=== PATIENT | male | born 1990 | race Caucasian/White ===

== ENCOUNTER 2019-05-07 05:49 | Inpatient (IN) | payer MEDICAID, OTHER ==
[~2019-05-07] VITALS: Ht 172.7 cm; Wt 104.0 kg
[2019-05-07] MEDS ORDERED: HYDR-4001 MT (06:06)
[2019-05-07] MEDS ORDERED: OMEP20CA5 PO (06:06)
[2019-05-07] MEDS ORDERED: MORPHINE SULFATE 4 MG/ML CPJ (NOT FOR IM USE) IV STA (06:41)
[2019-05-07] MEDS ORDERED: ONDANSETRON HCL 4MG/2ML INJ IV STA (06:41)
[2019-05-07] MEDS ORDERED: SODIUM CHLORIDE 0.9% 1,000 ML IV ONE ×2 (06:41→08:52)
[2019-05-07] MEDS ORDERED: KETOROLAC 30MG/ML VIAL IV ONE (07:00)
[2019-05-07 07:16] LABS: CLARITY URINE CLEAR (CLEAR); COLOR URINE YELLOW (YELLOW); KETONES URINE NEGATIVE (NEGATIVE); LEUKOCYTE ESTERASE URINE NEGATIVE (NEGATIVE); NITRITE URINE NEGATIVE (NEGATIVE); OCCULT BLOOD URINE NEGATIVE (NEGATIVE); PH URINE 5.5 (4.5-8.0); PROTEIN URINE NEGATIVE (NEGATIVE); SPECIFIC GRAVITY URINE 1.024 (1.005-1.030); UROBILINOGEN URINE 0.2 E.U./dL (0.2-1.0)
[2019-05-07 08:17] LABS: BASOPHILS % 0.4 % (0.0-2.0); EOSINOPHILS % 1.4 % (0.0-5.0); HEMATOCRIT. 39.9 % (42.0-52.0); HEMOGLOBIN. 13.7 g/dL (14.0-18.0); LYMPHOCYTES % 33.3 % (20.0-50.0); MEAN CORPUSCULAR HEMOGLOBIN 30.9 pg (28.0-32.0); MEAN PLATELET VOLUME 7.6 fl (7.4-10.4); MONOCYTES % 8.2 % (2.0-8.0); NEUTROPHILS % 56.7 % (40.0-76.0); PLATELET 394 x1000/uL (130-400); RED BLOOD CELL COUNT 4.44 mill/uL (4.7-6.1); RED CELL DISTRIBUTION WIDTH 12.4 % (11.6-14.6)
[2019-05-07 08:32] LABS: CHLORIDE 108 mEq/L (98-107)
[2019-05-07 09:23] LABS: AMYLASE 156 IU/L (25-115)
[2019-05-07 12:26] VITALS: BP 105/55
[2019-05-07] MEDS ORDERED: KETOROLAC 30MG/ML VIAL IV PRN (14:00)
[2019-05-07] MEDS ORDERED: ACETAMINOPHEN 650MG SUPP PR PRN (14:00)
[2019-05-07] MEDS ORDERED: ONDANSETRON HCL 4MG/2ML INJ IV PRN (14:00)
[2019-05-07] MEDS ORDERED: FAMOTIDINE 20MG/2ML VIAL IV SCH (14:30)
[2019-05-07] MEDS ORDERED: DEXT 5%/0.45% NACL 1000ML 1,000 ML IV SCH (14:30)
[2019-05-07] MEDS ORDERED: ENALAPRIL 0.625 MG in DEXTROSE 5% WATER 49.5 ML IV PRN (15:00)
== END 2019-05-07 14:30 | disposition left against medical advice (07) | DRG 282 ==
LOC: ER 05:49 → 6EST 11:00 → EDBEDREQTM 11:19 → EDBEDREQ 11:19 → ENRESERV 11:46
PROVIDERS: ADMIT Hospitalist; ATTEND Hospitalist
DX: K85.90 Acute pancreatitis without necrosis or infection, unspecified (principal); F12.90 Cannabis use, unspecified, uncomplicated; F41.9 Anxiety disorder, unspecified; Z53.29 Procedure and treatment not carried out because of patient's decision for other reasons
CPT/HCPCS: 36415; 76705; 81003; 82150; 96361; 96374; 99285; J1885; J3490; J7030